=== PATIENT | male | born 1940 | race American Indian/Alaskan Native ===

== ENCOUNTER 2016-08-07 08:26 | Outpatient (CLI) | payer MEDICARE ==
--- NOTE | 2016-08-08 08:50 | Cat Scan Report ---
CT NECK, CHEST, ABDOMEN AND PELVIS WITH CONTRAST: 08/07/16 CLINICAL: Malignant carcinoid tumor of the colon and history of prostate cancer. COMPARISON: CT Chest, Abdomen and Pelvis with contrast 01/25/16 TECHNIQUE: Volumetric acquisition and 1.25 millimeter scan reconstructions after the uneventful intravenous injection of 100 cc Omnipaque 300. Consent was obtained prior to the administration of contrast. Oral contrast was given. FINDINGS: Neck: No mass or lymphadenopathy of the neck. Normal mucosal structures. Normal salivary glands. Approximate 50% stenosis at the origin of the left ICA and less than 50% stenosis at the origin of the right ICA. Chest: No pulmonary nodule or mass. Stable focal thickening of the left lung fissure and stable mild bilateral lower lobe interstitial fibrotic changes. No pleural effusion. No mass or lymphadenopathy. Small mediastinal and bilateral axillary lymph nodes. Normal heart, aorta and pulmonary arteries. Abdomen: Stable hepatic hypodensities and a liver mass. Normal gallbladder and bile ducts. Normal stomach, duodenum, and spleen. Normal pancreas. Benign left adrenal adenoma measures 1.9 cm. Normal right adrenal gland. Several benign left renal cysts. The right kidney is normal. Renal collecting systems and ureters are normal. The small bowel and colon are normal status post right hemicolectomy. Normal ileotransverse anastomosis. No lymphadenopathy or ascites. No mass. Pelvis: Normal urinary bladder and rectum.A prostate is not identified. Normal sigmoid colon. No lymphadenopathy. Bone windows demonstrate no new bone lesion. Benign sclerotic and lucent lesions of the T12 vertebra and the left iliac bone have been stable since 2014. IMPRESSION: 1. No mass or lymphadenopathy. 2. Stable likely benign nodular thickening of the left lung fissure. 3. Stable benign hepatic cysts and hemangiomas. 4. Status post right hemicolectomy. 5. Stable left benign adrenal adenoma.
== END 2016-08-07 08:27 | disposition home or self-care (01) ==
LOC: SPVIMAG 08:26
PROVIDERS: ATTEND Internal Medicine Hematology
DX: C7A.029 Malignant carcinoid tumor of the large intestine, unspecified portion (principal); C61 Malignant neoplasm of prostate; I65.22 Occlusion and stenosis of left carotid artery; I65.21 Occlusion and stenosis of right carotid artery; D35.02 Benign neoplasm of left adrenal gland; N28.1 Cyst of kidney, acquired; G54.3 Thoracic root disorders, not elsewhere classified; K76.89 Other specified diseases of liver; D18.09 Hemangioma of other sites; Z90.3 Acquired absence of stomach [part of]
CPT/HCPCS: 70491; 71260; 74177; Q9967

== ENCOUNTER 2017-10-08 08:07 | Outpatient (CLI) | payer MEDICARE ==
[2017-10-08 08:37] LABS: Blood Urea Nitrogen 20 mg/dL (9-20)
--- NOTE | 2017-10-08 16:14 | Cat Scan Report ---
FINAL REPORT EXAM: CT ABDOMEN PELVIS W CON HISTORY: MALIGNANT NEOPLASM OF PROSTATE TECHNIQUE: CT of Chest, Abdomen, and Pelvis with IV contrast. Coronal and sagittal reconstructed imaging provided. PRIORS: None currently available. FINDINGS: CHEST: No pneumothorax. No effusion. No consolidation. No endobronchial lesion. Mild linear scarring or discoid subsegmental atelectasis in both lung bases. Main pulmonary arteries are unremarkable. No aortic aneurysm. Heart size unremarkable. No pericardial effusion. There is no axillary adenopathy. There is no hilar or mediastinal mass or adenopathy. Heterogenous thyroid gland. A distinct nodules not evident; however, nodules are not excluded. Images of the esophagus are unremarkable. ABDOMEN: Several subcentimeter low-density lesions are present within the liver. Largest lesion is in the right liver measuring approximately 4.5 mm. No abnormal enhancement identified. Gallbladder, stomach, spleen, and pancreas are unremarkable. Right adrenal glands unremarkable. Left adrenal nodule measures 1.5 cm and is indeterminate. Kidneys: Cortical cyst upper left renal cortex measures 1.8 cm. No hydronephrosis. No suspicious enhancing lesions. Right kidney is unremarkable. There is no abdominal aortic aneurysm. No dissection. Iize-ef-jhrsidio atherosclerotic disease noted. IVC is unremarkable. There is no periaortic or retroperitoneal adenopathy or mass. [id number] stool. No wall thickening or inflammatory changes. Terminal ileum is unremarkable. The appendix is not identified. There are no pericecal inflammatory changes. Small bowel loops are unremarkable. No obstructive pattern. No free air. No free fluid. Mesentery is unremarkable. Fat-containing umbilical hernia without strangulation. PELVIS: Prostate is not clearly visualized. Patient may be status post prostatectomy. Bladder is unremarkable. There is no pelvic mass or adenopathy. Inguinal regions are unremarkable. Bones: Mixed lytic and sclerotic lesion at the T12 vertebral body and posterior elements may represent a hemangioma or bone cyst. Metastatic disease is not entirely excluded but appearance is atypical. Lytic lesion in the left posterior iliac bone on series 3:470 measures 1.6 cm. Likely bone island in the left femoral head. Metastatic disease better evaluated with bone scan. Degenerative changes are in the spine. IMPRESSION: Irregular lytic lesion at the T12 vertebral body and left iliac bones are nonspecific. Metastatic disease is lower on the differential but further evaluation bone scan may be helpful clinically indicated. Subcentimeter low-density lesions in the liver are nonspecific. Differential diagnosis includes cysts and hemangiomas. Left renal upper cortical cyst. Indeterminate left adrenal nodule.
== END 2017-10-08 08:08 | disposition home or self-care (01) ==
LOC: CT 08:07
PROVIDERS: ATTEND Internal Medicine Hematology
DX: C61 Malignant neoplasm of prostate (principal); C7A.022 Malignant carcinoid tumor of the ascending colon; K76.89 Other specified diseases of liver; I25.10 Atherosclerotic heart disease of native coronary artery without angina pectoris; M47.899 Other spondylosis, site unspecified; N28.1 Cyst of kidney, acquired; Z90.79 Acquired absence of other genital organ(s); Z80.42 Family history of malignant neoplasm of prostate
CPT/HCPCS: 36415; 71260; 74177; 82565; 84520; Q9967

== ENCOUNTER 2018-06-18 08:24 | Outpatient (CLI) | payer MEDICARE ==
[2018-06-18 09:03] LABS: Blood Urea Nitrogen 17 mg/dL (9-20)
--- NOTE | 2018-06-18 10:46 | Cat Scan Report ---
CT CHEST, ABDOMEN AND PELVIS WITH CONTRAST INDICATION: Malignant neoplasm of prostate. COMPARISON: Multiple prior imaging, the most recent from 10/08/2017 and dating back to 10/26/2013. FINDINGS: Chest, abdomen and pelvis CT performed following intravenous administration of 100 cc of Omnipaque 300. CHEST: Stable heart size. No effusions or size significant adenopathy. Few coronary and aortic atherosclerotic calcifications again noted. Unremarkable great vessels. Patent airway. Stable thyroid. No focal suspicious lung masses. Slight lingular scarring and bibasilar dependent atelectasis again noted. Stable approximately 3 cm left chest wall intermuscular lipoma anterolateral to the scapular inferior tip, axial image 78, series 2. ABDOMEN: Few subcentimeter, indeterminate hepatic hypodensities again noted as also some in the right hepatic lobe posteroinferiorly as on axial series 2, images 169-190 measuring up to approximately 1.1 cm on axial image 188, stable dating back to 2013 and representing benign lesions as hemangiomas. No new suspicious enhancing lesions. Spleen, gallbladder, pancreas, right adrenal, tortuous though nonaneurysmal abdominal aorta with atherosclerotic calcifications and IVC within normal limits. Stable non-hydronephrotic kidneys with few hypodensities, some subcentimeter/indeterminate while the largest 2 cm left upper renal pole exophytic cyst again noted, axial image 170, series 2. Stable 1.8 cm left renal hypodense nodule measuring 9HU on axial image 176. No ascites or size significant adenopathy. Nonopacified GI tract evaluation limited, though grossly nonobstructive. Stable right hemicolectomy changes. PELVIS: Urinary bladder and the rectosigmoid within normal limits. Few small pelvic phleboliths with again likely surgically absent prostate and the seminal vesicles. No free fluid or significant adenopathy. Mild multilevel spinal degenerative spurring. Slight L5-S1 vacuum disc phenomenon on the right. A 1.6 cm left iliac bone focus with sclerotic margins, axial image 244, series 2 is stable since 2013. Stable 0.5 cm left femoral head bone island on axial image 276. Diffuse heterogeneity again noted in the T12 vertebral body and its posterior elements and may represent Paget's disease or hemangiomatous involvement. Mild lumbar dextroscoliosis apex about L3. Lower cervical spine degenerative changes also incidentally imaged. CONCLUSION: No acute CT abnormality or evidence of metastatic disease in chest, abdomen or pelvis with various stable findings, as detailed above. Thank you for the opportunity to participate in this patient's care.
== END 2018-06-18 08:25 | disposition home or self-care (01) ==
LOC: CT 08:24
PROVIDERS: ATTEND Internal Medicine Hematology
DX: C61 Malignant neoplasm of prostate (principal); C7A.022 Malignant carcinoid tumor of the ascending colon; M25.78 Osteophyte, vertebrae; M47.812 Spondylosis without myelopathy or radiculopathy, cervical region; M41.86 Other forms of scoliosis, lumbar region; Z80.42 Family history of malignant neoplasm of prostate
CPT/HCPCS: 36415; 71260; 74177; 82565; 84520; Q9967

== ENCOUNTER 2018-11-26 09:53 | Outpatient (CLI) | payer MEDICARE ==
[2018-11-26 11:24] LABS: Blood Urea Nitrogen 16 mg/dL (9-20)
--- NOTE | 2018-11-26 13:37 | Cat Scan Report ---
CT facial with contrast Clinical history: Right parotid and submitted to better gland swelling. FINDINGS: No previous exams available for comparison. There are mild relative edematous changes of th e right parotid gland. However, there is fairly symmetric attenuation. No definitive focal lesions ar e identified at. No significant superficial inflammatory changes are identified. No sialoliths are se en within the parotid glands at. The submandibular glands are only partially visualized at. However, no significant inflammatory changes or evidence of sialoliths within the superior segments at. There is mild mucosal thickening along the inferior maxillary sinuses, greater on the right. The para nasal sinuses are otherwise clear. The nasal septum is midline. No significant inflammatory changes a re seen involving the orbits. The mastoid air cells are clear. The temporal mandibular joints are unr emarkable. All CT scans at this location are performed using the CT dose reduction for ALARA by means of automated exposure control. IMPRESSION: There are mild relative edematous changes of the right parotid gland as detailed above which is nonsp ecific though may be related to parotiditis. No sialoliths or fluid collections are identified. Signer Name: Gautam Bustos MD Signed: 11/26/2018 1:33 PM Workstation Name: [id number]
== END 2018-11-26 09:54 | disposition home or self-care (01) ==
LOC: CT 09:53
PROVIDERS: ATTEND Internal Medicine Hematology
DX: C7A.022 Malignant carcinoid tumor of the ascending colon (principal); C61 Malignant neoplasm of prostate; Z80.42 Family history of malignant neoplasm of prostate
CPT/HCPCS: 36415; 70487; 82565; 84520; Q9967

== ENCOUNTER 2019-09-26 09:14 | Outpatient (CLI) | payer MEDICARE | END 2019-09-26 09:15 | disposition home or self-care (01) | LOC: CT 09:14 | PROVIDERS: ATTEND Internal Medicine Hematology | DX: C41.9 Malignant neoplasm of bone and articular cartilage, unspecified (principal); D35.02 Benign neoplasm of left adrenal gland; C7A.022 Malignant carcinoid tumor of the ascending colon; C61 Malignant neoplasm of prostate; N28.1 Cyst of kidney, acquired; D18.09 Hemangioma of other sites; Z80.42 Family history of malignant neoplasm of prostate | CPT/HCPCS: 36415; 71260; 74160; 82565; 84520; Q9967 ==

== ENCOUNTER 2021-01-23 09:56 | Outpatient (CLI) | payer MEDICARE ==
--- NOTE | 2021-01-23 11:50 | Cat Scan Report ---
CT ABDOMEN AND PELVIS WITH CONTRAST HISTORY: COLON/PROSTATE CA OMNI 300 100ML COMPARISON: 09/26/2019 TECHNIQUE: Axial CT images were obtained through the abdomen and pelvis after 100 cc of Omnipaque 300 IV contrast. Sagittal and coronal reformatted images. All CT scans at this location are performed us ing CT dose reduction for ALARA by means of automated exposure control. FINDINGS: CT ABDOMEN: Lung Bases: Clear. Liver: The liver remains normal size and density. Multiple tiny hypodensities scattered throughout th e liver appear stable and consistent with small cysts. No suspicious liver mass is detected. Biliary: No significant abnormality. Spleen: No significant abnormality. Unenlarged. Pancreas: No acute abnormality. Pancreas device and is suspected. Adrenals: Stable appearance of the low density 1.8 cm left adrenal lesion which probably represents a n adenoma. Kidneys: Stable 1.9 cm exophytic cyst from the superior pole of the left kidney. The kidneys and hermann ecting systems are unremarkable otherwise. Lymphatics: No lymphadenopathy. Vasculature: The abdominal aorta is mildly ectatic with scattered plaques. No aneurysm or dissection. The venous structures are unremarkable. Bowel/Peritoneum: Right hemicolectomy changes are suspected. No recurrent GI mass, obstruction or inf lammatory changes are appreciated. No free fluid, free air or fluid collection. CT PELVIS: : No significant abnormality. Osseous Structures: Stable mottled appearance of the T12 vertebral body. This appears unchanged since 01/25/2016 exam. No new bony lesions are appreciated. Additional Findings: None IMPRESSION: Stable findings in the abdomen and pelvis since 09/26/2019 exam. No evidence for metastatic or recurren t disease. Stable 1.8 cm left adrenal lesion probably representing an adenoma. Stable mottled appearance of the T12 vertebral body since 2015. Signer Name: Chidi Ch Jr, MD Signed: 01/23/2021 11:46 AM Workstation Name: [id number]
--- NOTE | 2021-01-23 11:52 | Cat Scan Report ---
CT CHEST WITH CONTRAST INDICATION / CLINICAL INFORMATION: COLON/PROSTATE CA OMNI 300 100ML. TECHNIQUE: Axial CT images were obtained through the chest after 100 cc Omnipaque 300 IV contrast. Sagittal and coronal reformatted images. All CT scans at this location are performed using CT dose reduction for A BELA by means of automated exposure control. COMPARISON: 09/26/2019 FINDINGS: HEART: No significant abnormality. THORACIC AORTA: No significant abnormality. MEDIASTINUM and EM: No significant abnormality. LUNGS: No acute air space or interstitial disease. No suspicious pulmonary lesion has developed. PLEURA: No significant pleural effusion. No pneumothorax. SKELETAL SYSTEM: No significant abnormality. ADDITIONAL FINDINGS: None. IMPRESSION: Stable findings in the chest since 09/26/2019 with no evidence for metastatic disease. Signer Name: Chidi Ch Jr, MD Signed: 01/23/2021 11:48 AM Workstation Name: [id number]
== END 2021-01-23 09:57 | disposition home or self-care (01) ==
LOC: CT 09:56
PROVIDERS: ATTEND Internal Medicine Hematology
DX: C7A.022 Malignant carcinoid tumor of the ascending colon (principal); C61 Malignant neoplasm of prostate; N28.1 Cyst of kidney, acquired; K76.89 Other specified diseases of liver; Z80.42 Family history of malignant neoplasm of prostate
CPT/HCPCS: 36415; 71260; 74177; 82565; 84520; Q9967